=== PATIENT | male | born 1955 | race Caucasian/White ===

== ENCOUNTER 2021-05-15 08:40 | Outpatient (CLI) | payer MEDICARE, OTHER ==
--- NOTE | 2021-05-15 09:46 | CT Report ---
PROCEDURE: Low Dose Lung Cancer Screen INDICATIONS: HIST OF SMOKING TECHNIQUE: Noncontrast low-dose images were acquired from the pulmonary apices to the posterior costophrenic ang les. Multiplanar MIP reformats were then acquired. For radiation dose reduction, the following was used: automated exposure control, adjustment of mA and/or kV according to patient size. COMPARISON: None. FINDINGS: Image quality: Excellent. Lungs and pleura: Minimal thickening at the right minor fissure measuring 0.3 cm, (4/171, 166). Thes e could represent intrapulmonary lymph nodes. Left upper lobe punctate pulmonary nodules, (4/89,57). No acute airspace opacity. Airways are clear. No pleural effusion. Mediastinum: Heart size is normal. Trace coronary artery calcifications in the LAD. No pericardial e ffusion. No mediastinal adenopathy by size criteria. Prominent right axillary lymph node measuring 1 cm, (3/18). Thoracic aorta and central pulmonary arteries are normal in size. Esophagus is normal i n caliber. No hiatal hernia. Bones and chest wall: No suspicious bony lesions. No vertebral body compression fractures. No axil ashu or supraclavicular adenopathy by size criteria. The thyroid is normal in size and there are no incidental findings. Abdomen: Visualized upper abdomen solid organs and bowel loops appear normal in the absence of contr ast. IMPRESSION: 1. No significant pulmonary nodules. A few small pulmonary nodules measuring 0.4 cm or less. Lung RAD S 2. Recommend continued lung cancer screen chest CT in 12 months. 2. Prominent right axillary node measuring 1 cm is nonspecific. Recommend clinical correlation and co rrelation with prior Covid 19 vaccination. Reviewed by: Hari Kimble MD on 05/15/2021 9:45 AM [facility] Approved by: Hari Kimble MD on 05/15/2021 9:45 AM [facility] Station ID: [id number]
== END 2021-05-15 08:41 | disposition home or self-care (01) ==
LOC: DI 08:40
PROVIDERS: ATTEND Nurse Practitioner Family
DX: Z12.2 Encounter for screening for malignant neoplasm of respiratory organs (principal); F17.210 Nicotine dependence, cigarettes, uncomplicated